=== PATIENT | male | born 1935 | race Caucasian/White ===

== ENCOUNTER 2018-09-13 07:17 | Day surgery (SDC) | payer MEDICARE, OTHER ==
[~2018-09-13 07:17] MED LIST: Lactated Ringers 1,000 ML IV SCH; Lidocaine 1%/Sod Bicarbonate in NS 8.4% 1 ML Syringe IDERM PRN; Sodium Chloride 0.9% 10 ML Syringe FLUSH PRN
--- NOTE | 2018-09-13 07:37 | PCM.PREANE ---
Preanesthetic Assessment - Anesthesia/Transfusion/Family Hx Anesthesia History: Prior Anesthesia Without Reaction Family History of Anesthesia Reaction: No Transfusion History: No Prior Transfusion(s) - Review of Systems General: No Symptoms Pulmonary: Shortness of Breath Cardiovascular: Dyspnea on Exertion Gastrointestinal: No Symptoms Neurological: Numbness (fingers and toes) Other: Reports: Diabetes - Physical Assessment NPO Status Date: 09/12/18 NPO Status Time: 00:00 Pulse: 62 O2 Sat by Pulse Oximetry: 93 Respiratory Rate: 16 Blood Pressure: 172/87 Temperature: 36.3 C Height: 1.75 m Weight: 92.624 kg ASA Class: 3 Mental Status: Alert & Oriented x3 Airway Class: Mallampati = 2 Dentition: Reports: Normal Dentition Thyro-Mental Finger Breadths: 2 Mouth Opening Finger Breadths: 2 ROM/Head Extension: Limited/Partial Lungs: Clear to Auscultation, Normal Respiratory Effort, Decreased Breath Sounds Cardiovascular: Regular Rate, Regular Rhythm - Allergies Allergies/Adverse Reactions: Allergies Allergy/AdvReac Type Severity Reaction Status Date / Time ciprofloxacin AdvReac Stomach Verified 09/12/18 13:05 Upset doxycycline AdvReac Stomach Verified 09/12/18 13:05 Upset - Blood Blood Available: No Product(s) Available: None - Anesthesia Plan Pre-Op Medication Ordered: Beta Saman Beta Saman: Bisoprolol Med Last Dose Date: 09/12/18 Med Last Dose Time: 21:00 - Acknowledgements Anesthesia Type Planned: MAC Pt an Appropriate Candidate for the Planned Anesthesia: Yes Alternatives and Risks of Anesthesia Discussed w Pt/Guardian: Yes Pt/Guardian Understands and Agrees with Anesthesia Plan: Yes PreAnesthesia Questionnaire HEENT History: Reports: Impaired Vision, Sinusitis, Other (See Below) Other HEENT History: impacted cerumen, blepharoplasty, cataract surgery, has hearing aids, glasses Cardiovascular History: Reports: Aneurysm, High Cholesterol, Hypertension, Other (See Below) Other Cardiovascular History: cough, dypsnea Respiratory History: Reports: Sleep Apnea, Other (See Below) Other Respiratory History: cough, dypsnea Gastrointestinal History: Reports: Diverticulosis, Other (See Below) Genitourinary History: Reports: Other (See Below) Other Genitourinary History: dysuria, nocturia [employer] History: Reports: None Musculoskeletal History: Reports: Other (See Below) Other Musculoskeletal History: restless leg syndrome, myalgia, myositis Neurological History: Reports: None Psychiatric History: Reports: None Endocrine/Metabolic History: Reports: Diabetes, Type II Hematologic History: Reports: None Immunologic History: Reports: None Oncologic (Cancer) History: Reports: None Dermatologic History: Reports: Other (See Below) Other Dermatologic History: rash, viral warts - Past Surgical History Head Surgeries/Procedures: Reports: None Cardiovascular Surgical History: Reports: AAA Repair Respiratory Surgical History: Reports: None GI Surgical History: Reports: Appendectomy, Cholecystectomy, Colon, Colonoscopy , EGD Female Surgical History: Reports: None Male Surgical History: Reports: None Endocrine Surgical History: Reports: None Neurological Surgical History: Reports: None Musculoskeletal Surgical History: Reports: None Oncologic Surgical History: Reports: None Dermatological Surgical History: Reports: None - SUBSTANCE USE Smoking Status *Q: Never Smoker Tobacco Use Within Last Twelve Months: No Second Hand Smoke Exposure: No Days Per Week of Alcohol Use: 1 Number of Drinks Per Day: 0 Total Drinks Per Week: 0 Recreational Drug Use History: No - HOME MEDS Home Medications: Home Meds Acetaminophen/Caffeine [Excedrin Tension Headache Cplt] 2 tab PO Q6H PRN [History] Bisoprolol/Hydrochlorothiazide [Bisoprolol/HCTZ 10-6.25 MG] 1 tab PO DAILY 09/12 [History] Finasteride 5 mg PO DAILY 09/12/18 [History] Fluticasone Propionate [Flonase] 1 dose NASBOTH DAILY 09/12/18 [History] Gabapentin [Neurontin] 300 mg PO BEDTIME 09/12/18 [History] Insulin Glargine,Hum.Rec.Anlog [Toujeo Solostar] 25 units SQ DAILY 09/12/18 [ History] Losartan Potassium 50 mg PO DAILY 09/12/18 [History] Omeprazole 20 mg PO DAILY 09/12/18 [History] Tamsulosin HCl 0.4 mg PO DAILY 09/12/18 [History] glipiZIDE [Glucotrol] 10 mg PO BID 09/12/18 [History] metFORMIN [Glucophage XR] 500 mg PO DAILY 09/12/18 [History] - CURRENT (IN HOUSE) MEDS Current Meds: Current Medications Lactated Ringer's (Ringers, Lactated) 1,000 mls @ 125 mls/hr IV ASDIRECTED BAO Stop: 09/13/18 23:00 Lidocaine/Sodium Bicarbonate (Buffered Lidocaine 1% In Ns 8.4%) 0.25 ml IDERM ONETIME PRN PRN Reason: Prior to IV Start Stop: 09/13/18 18:00 Sodium Chloride (Saline Flush) 10 ml FLUSH ASDIRECTED PRN PRN Reason: Keep Vein Open Stop: 09/13/18 18:00
[2018-09-13] MEDS ORDERED: Propofol 200 MG/20 ML SDV ONE ×2 (09:24→09:55)
--- NOTE | 2018-09-13 10:19 | PCM.OPNOTE ---
- General Post-Op/Procedure Note Date of Surgery/Procedure: 09/13/18 Operative Procedure(s): EGD Findings: 1. Gastritis 2. Hiatal hernia vs. long segment Mohr's Esophagus 3. 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 Antrum biopsy 2. Z-line biopsy 3. Mohr's biopsy, proximal Fluid Replacement, Intraop: 500 Output, Urine Amount: 0 EBL in mLs: 0 Complications: none apparent Condition: Good
--- NOTE | 2018-09-13 10:21 | PCM.PRNOTE ---
- Free Text/Narrative Note: Operative Report Date of procedure: September 13, 2018 Preoperative diagnosis: , Dysphagia, persistent cough when eating Postoperative diagnosis: . Same Surgeon: Teresa Castillo M.D. Procedure: EGD with Biopsy Anesthesia: MAC Anesthesiologist: Hang White CRNA IV fluids: 500 mL Estimated blood loss: 0 mL Findings: 1. Gastritis 2. Hiatal hernia vs. long segment Mohr's Esophagus 3. 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 Antrum biopsy 2. Z-line biopsy 3. Mohr's biopsy, proximal Indication: The patient is an 83 -year-old gentleman who presented with complaints of dysphagia as well as persistent coughing when eating. The patient reports he also sometimes starts sneezing while eating. He underwent a preoperative evaluation with swallow study to rule out aspiration. This was negative. He also underwent an x-ray esophagram one year ago that did not reveal any abnormal contraction or stricture in the esophagus. The patient was consented for an EGD with intervention. Risk of bleeding and perforation were discussed. The patient's consent was obtained Description of the procedure: The patient was taken to the endoscopy suite and placed on hemodynamic monitoring. The nurse transition of care specialist induced MAC anesthesia. A bite block was placed. The patient was positioned in the left lateral decubitus position. A timeout was performed. The endoscope was gently placed into the mouth to the back of the pharynx and introduced into the esophagus. The scope was gently advanced under direct visualization down to the level of the lower esophageal sphincter. The stomach was then entered. Normal rugal folds were noted. The scope was advanced into the antrum. We noted gastritis, marked by patchy erythema. Cold biopsy forceps were used to take mucosal samples for H. pylori in the antrum The pylorus was then entered and the first and second portion of the duodenum was inspected. We did not see any abnormality in the mucosa of the duodenum. There were no ulcerations in the duodenum. The scope was then retroflexed in the cardia and fundus were investigated. There were 3 areas of superficial erythema and mild erosion noted in the body of the stomach. The scope was then withdrawn into the esophagus to evaluate the GE junction. The GE junction was noted at 44 cm from the mouth. The Z line was noted at 34 cm from the mouth. The Z line was irregular with some tongues of mucosa extending upwards. It was unclear if the large extent of gastric mucosa was from long segment Mohr's esophagus versus a large hiatal hernia. Biopsies were taken of the proximal and of the mucosa at the Z line. These biopsies were taken with cold biopsy forceps in 4 quadrants and sent for pathology. The scope was further withdrawn to inspect the upper airway structures. 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 Photographs were taken. No mucosal abnormalities over this tumor. The procedure was terminated. the patient tolerated the procedure well without any evidence of complications. Instructions: The patient will follow up in clinic. His PPI dose was increased due to the gastritis findings. We will follow up the biopsies to evaluate Mohr's versus hiatal hernia. He will be referred for follow-up with ENT to evaluate the mass on the epiglottis. Teresa Castillo MD General Surgery
== END 2018-09-13 11:02 | disposition home or self-care (01) ==
LOC: JD.SDS 07:17
PROVIDERS: ATTEND Surgery
DX: K22.70 Barrett's esophagus without dysplasia (principal); K29.50 Unspecified chronic gastritis without bleeding; K22.8 Other specified diseases of esophagus; K21.9 Gastro-esophageal reflux disease without esophagitis; J39.2 Other diseases of pharynx; I10 Essential (primary) hypertension; E11.42 Type 2 diabetes mellitus with diabetic polyneuropathy; E78.2 Mixed hyperlipidemia; G47.33 Obstructive sleep apnea (adult) (pediatric); Z88.1 Allergy status to other antibiotic agents; Z79.51 Long term (current) use of inhaled steroids; Z79.4 Long term (current) use of insulin; Z79.899 Other long term (current) drug therapy
CPT/HCPCS: 43239; 82962; 88305; 88342; J2704; J7120; 00731

== ENCOUNTER 2019-05-09 11:08 | Emergency (ER) | payer MEDICARE, OTHER ==
[2019-05-09] MEDS ORDERED: Ondansetron 4 MG/2 ML SDV IVPUSH ONE (11:38)
--- NOTE | 2019-05-09 11:43 | EDM.PDOC ---
ED HPI GENERAL MEDICAL PROBLEM - General Chief Complaint: Abdominal Pain Stated Complaint: [facility] Time Seen by Provider: 05/09/19 11:30 Source of Information: Reports: Patient History Limitations: Reports: No Limitations - History of Present Illness INITIAL COMMENTS - FREE TEXT/NARRATIVE: 83-year-old male from [facility] attends the ED per ambulance. He states he hasn't been feeling well for 2 months. Early satiety losing weight probably 20 pounds in 2 months. Pain and pressure discomfort in his upper abdomen. Some positive constipation. Denies any chest pain cough or sputum production. No recent changes to any of his medications. He is a type II diabetic controlled with oral medications. Glipizide and metformin. Onset: Gradual, Other (Right proximal the last 2 months and progressively getting worse) Duration: Chronic, Getting Worse Location: Reports: Abdomen (Diffuse upper abdominal tenderness and discomfort. Early satiety . 20 pound weight loss over the last 2 months. Chronic constipation problems) Quality: Reports: Other Severity: Moderate (Overpressure fullness discomfort.) Improves with: Reports: None Worsens with: Reports: None Context: Reports: Other. Denies: Activity, Exercise, Lifting, Sick Contact, Trauma Associated Symptoms: Reports: Diaphoresis, Loss of Appetite, Malaise, Nausea/ Vomiting (Night sweats diaphoresis), Weakness. 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) (Only has prescribed medications) - Related Data Allergies Allergy/AdvReac Type Severity Reaction Status Date / Time ciprofloxacin AdvReac Stomach Verified 05/09/19 11:32 Upset doxycycline AdvReac Stomach Verified 05/09/19 11:32 Upset Home Meds: Home Meds Acetaminophen/Caffeine [Excedrin Tension Headache Cplt] 2 tab PO Q6H PRN [History] Bisoprolol/Hydrochlorothiazide [Bisoprolol/HCTZ 10-6.25 MG] 1 tab PO DAILY 09/12 [History] Finasteride 5 mg PO DAILY 09/12/18 [History] Fluticasone Propionate [Flonase] 1 dose NASBOTH DAILY 09/12/18 [History] Gabapentin [Neurontin] 300 mg PO BEDTIME 09/12/18 [History] Insulin Glargine,Hum.Rec.Anlog [Toujeo Solostar] 20 units SQ DAILY 09/12/18 [ History] Losartan Potassium 50 mg PO DAILY 09/12/18 [History] Tamsulosin HCl 0.4 mg PO DAILY 09/12/18 [History] glipiZIDE [Glucotrol] 10 mg PO BID 09/12/18 [History] metFORMIN [Glucophage XR] 500 mg PO DAILY 09/12/18 [History] Omeprazole 20 mg PO DAILY 30 Days #30 cap.cr 09/13/18 [Rx] Furosemide [Lasix] 40 mg PO DAILY #30 tablet 05/09/19 [Rx] Past Medical History HEENT History: Reports: Impaired Vision, Sinusitis, Other (See Below) Other HEENT History: impacted cerumen, blepharoplasty, cataract surgery, has hearing aids, glasses Cardiovascular History: Reports: Aneurysm, High Cholesterol, Hypertension, Other (See Below) Other Cardiovascular History: cough, dypsnea Respiratory History: Reports: Sleep Apnea, Other (See Below) Other Respiratory History: cough, dypsnea Gastrointestinal History: Reports: Diverticulosis, Other (See Below) Genitourinary History: Reports: Other (See Below) Other Genitourinary History: dysuria, nocturia [employer]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: None Musculoskeletal History: Reports: Other (See Below) Other Musculoskeletal History: restless leg syndrome, myalgia, myositis Neurological History: Reports: None Psychiatric History: Reports: None Endocrine/Metabolic History: Reports: Diabetes, Type II Hematologic History: Reports: None Immunologic History: Reports: None Oncologic (Cancer) History: Reports: None Dermatologic History: Reports: Other (See Below) Other Dermatologic History: rash, viral warts - Past Surgical History Cardiovascular Surgical History: Reports: AAA Repair GI Surgical History: Reports: Appendectomy, Cholecystectomy, Colon, Colonoscopy , EGD Male Surgical History: Reports: None Endocrine Surgical History: Reports: None Musculoskeletal Surgical History: Reports: None Oncologic Surgical History: Reports: None Dermatological Surgical History: Reports: None Social & Family History - Tobacco Use Smoking Status *Q: Never Smoker - Caffeine Use Caffeine Use: Reports: Coffee Caffeine Use Comment: occcasional - Recreational Drug Use Recreational Drug Use: No - Living Situation & Occupation Living situation: Reports: , with Spouse (They live in a home in [facility]) Occupation: Retired ED ROS GENERAL - Review of Systems Review Of Systems: See Below Constitutional: Reports: Malaise, Weakness, Fatigue, Decreased Appetite ( Reportedly 20 pound weight loss over 2 months), Weight Loss, Other (Early satiety). Denies: Fever, Chills HEENT: Reports: Glasses Respiratory: Reports: Shortness of Breath. Denies: Wheezing, Pleuritic Chest Pain, Cough, Sputum, Hemoptysis, Other Cardiovascular: Reports: Blood Pressure Problem, Dyspnea on Exertion. Denies: Chest Pain, Claudication, Edema, Lightheadedness, Orthopnea Endocrine: Reports: Fatigue GI/Abdominal: Reports: Abdominal Pain, Constipation (With early satiety), Decreased Appetite, Nausea. Denies: Difficulty Swallowing, Flatus, Hematemesis , Hematochezia, Melena, Mucous in Stool, Stool Incontinence, Vomiting : Reports: Frequency, Other (Nocturia usually twice nightly). 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 Burning in both lower extremities), Other Psychiatric: Reports: No Symptoms Hematologic/Lymphatic: Reports: No Symptoms Immunologic: Reports: No Symptoms ED EXAM, GI/ABD - Physical Exam Exam: See Below Exam Limited By: No Limitations General Appearance: Alert, WD/WN, No Apparent Distress, Other (Vital signs show temperature 37.4 pulse 78 sinus respiratory disease 18 BP mildly / 93. Sats are 91-92% on room air.) Eyes: Bilateral: Normal Appearance (No scleral icterus and no peripheral pallor. ) Throat/Mouth: Normal Lips, Normal Oropharynx, Other. No: Normal Teeth Head: Atraumatic, Normocephalic Neck: Normal Inspection, Supple, Non-Tender, Full Range of Motion, Limited Range of Motion. No: Carotid Bruit, Lymphadenopathy (L), Lymphadenopathy (R), Thyromegaly Respiratory/Chest: No Respiratory Distress, No Accessory Muscle Use, Rales ( Crackles both bases. They improve slightly with deep inspiration but he still has a few crackles. Likely atelectasis) Cardiovascular: Regular Rate, Rhythm, No Edema, No Gallop, No JVD, No Murmur, No Rub. No: Normal Peripheral Pulses GI/Abdominal Exam: Normal Bowel Sounds, Soft, Non-Tender, No Organomegaly, No Abnormal Bruit, No Mass, Other (He has had a midline laparotomy inferior to the umbilicus apparently for resection of portion of his colon secondary to diverticulitis 20 years ago. Primary reanastomosis) (Male) Exam: No Hernia Back Exam: Normal Inspection, Full Range of Motion. 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.) ST-T: Other (T-wave inversion V1 to V5.) QT: Prolonged (QTC is moderately prolonged.) EKG Interpretation Comments: Abnormal ECG Course - Vital Signs Last Recorded V/S: Last Vital Signs Temp 37.4 C 05/09/19 11:19 Pulse 78 05/09/19 11:19 Resp 18 05/09/19 11:19 BP 174/93 H 05/09/19 11:19 Pulse Ox 92 L 05/09/19 11:19 - Orders/Labs/Meds Orders: Active Orders 24 hr Category Date Time Status EKG Documentation Completion [RC] STAT Care 05/09/19 11:39 Active Influenza Vaccine Charge [RC] .DISCHARGE Care 05/09/19 11:43 Active Oxygen Therapy [RC] ASDIRECTED Care 05/09/19 11:39 Active Abdomen 1V Flat [CR] Stat Exams 05/09/19 11:40 Taken Chest 1V Frontal [CR] Stat Exams 05/09/19 11:39 Taken CULTURE BLOOD [BC] Stat Lab 05/09/19 12:05 Received CULTURE BLOOD [BC] Stat Lab 05/09/19 12:10 Received Sodium Chloride 0.9% [Normal Saline] 1,000 ml Med 05/09/19 11:45 Active IV ASDIRECTED Blood Culture x2 Reflex Set [OM.PC] Stat Oth 05/09/19 11:48 Ordered Medication Orders Sodium Chloride (Normal Saline) 1,000 mls @ 100 mls/hr IV ASDIRECTED BAO Last Admin: 05/09/19 11:44 Dose: 100 mls/hr Labs: Laboratory Tests 05/09/19 05/09/19 05/09/19 Range/Units 11:33 11:33 11:33 WBC 3.50 L (4.23-9.07) K/mm3 RBC 4.39 L (4.63-6.08) M/mm3 Hgb 12.4 L (13.7-17.5) gm/dl Hct 35.7 L (40.1-51.0) % MCV 81.3 (79.0-92.2) fl MCH 28.2 (25.7-32.2) pg MCHC 34.7 (32.2-35.5) g/dl RDW Std Deviation 37.1 (35.1-43.9) fL Plt Count 225 (163-337) K/mm3 MPV 9.2 L (9.4-12.3) fl Neut % (Auto) 42.3 (34.0-67.9) % Lymph % (Auto) 40.0 (21.8-53.1) % Coos % (Auto) 15.1 H (5.3-12.2) % Eos % (Auto) 2.0 (0.8-7.0) Baso % (Auto) 0.6 (0.1-1.2) % Neut # (Auto) 1.48 L (1.78-5.38) K/mm3 Lymph # (Auto) 1.40 (1.32-3.57) K/mm3 Co[place] # (Auto) 0.53 (0.30-0.82) K/mm3 Eos # (Auto) 0.07 (0.04-0.54) K/mm3 Baso # (Auto) 0.02 (0.01-0.08) K/mm3 Manual Slide Review Abnormal smear ESR (0-15) mm/hr PT 11.1 (9.7-12.0) SECONDS INR 1.02 APTT 30 (22-31) SECONDS Sodium 132 L (136-145) mEq/L Potassium 3.5 (3.5-5.1) mEq/L Chloride 97 L (98-107) mEq/L Carbon Dioxide 27 (21-32) mEq/L Anion Gap 11.5 (5-15) BUN 11 (7-18) mg/dL Creatinine 1.1 (0.7-1.3) mg/dL Est Cr Clr Drug Dosing 52.67 mL/min Estimated GFR (MDRD) > 60 (>60) mL/min BUN/Creatinine Ratio 10.0 L (14-18) Glucose 100 (83-115) mg/dL Hemoglobin A1c (4.50-6.20) % Lactic Acid (0.4-2.0) mmol/L Calcium 9.9 (8.5-10.1) mg/dL Magnesium 1.8 (1.8-2.4) mg/dl Total Bilirubin 0.5 (0.2-1.0) mg/dL AST 21 (15-37) U/L ALT 12 L (16-63) U/L Alkaline Phosphatase 41 L (46-116) U/L Troponin I < 0.017 (0.00-0.056) ng/mL C-Reactive Protein 0.3 (<1.0) mg/dL NT-Pro-B Natriuret Pep (0-450) pg/mL Total Protein 6.8 (6.4-8.2) g/dl Albumin 3.4 (3.4-5.0) g/dl Globulin 3.4 gm/dL Albumin/Globulin Ratio 1.0 (1-2) Lipase 86 (73-393) U/L TSH 3rd Generation 0.459 (0.358-3.74) uIU/mL Urine Color (Yellow) Urine Appearance (Clear) Urine pH (5.0-8.0) Ur Specific [place] (1.005-1.030) Urine Protein (Negative) Urine Glucose (UA) (Negative) Urine Ketones (Negative) Urine Occult Blood (Negative) Urine Nitrite (Negative) Urine Bilirubin (Negative) Urine Urobilinogen (0.2-1.0) Ur Leukocyte Esterase (Negative) Urine RBC (0-5) /hpf Urine WBC (0-5) /hpf Ur Epithelial Cells (0-5) /hpf Urine Bacteria (FEW) /hpf Hyaline Casts (0-5) /lpf Urine Mucus (FEW) /hpf 05/09/19 05/09/19 05/09/19 Range/Units 11:33 11:33 11:33 WBC (4.23-9.07) K/mm3 RBC (4.63-6.08) M/mm3 Hgb (13.7-17.5) gm/dl Hct (40.1-51.0) % MCV (79.0-92.2) fl MCH (25.7-32.2) pg MCHC (32.2-35.5) g/dl RDW Std Deviation (35.1-43.9) fL Plt Count (163-337) K/mm3 MPV (9.4-12.3) fl Neut % (Auto) (34.0-67.9) % Lymph % (Auto) (21.8-53.1) % Coos % (Auto) (5.3-12.2) % Eos % (Auto) (0.8-7.0) Baso % (Auto) (0.1-1.2) % Neut # (Auto) (1.78-5.38) K/mm3 Lymph # (Auto) (1.32-3.57) K/mm3 [place] # (Auto) (0.30-0.82) K/mm3 Eos # (Auto) (0.04-0.54) K/mm3 Baso # (Auto) (0.01-0.08) K/mm3 Manual Slide Review ESR 20 H (0-15) mm/hr PT (9.7-12.0) SECONDS INR APTT (22-31) SECONDS Sodium (136-145) mEq/L Potassium (3.5-5.1) mEq/L Chloride (98-107) mEq/L Carbon Dioxide (21-32) mEq/L Anion Gap (5-15) BUN (7-18) mg/dL Creatinine (0.7-1.3) mg/dL Est Cr Clr Drug Dosing mL/min Estimated GFR (MDRD) (>60) mL/min BUN/Creatinine Ratio (14-18) Glucose (83-115) mg/dL Hemoglobin A1c 6.70 H (4.50-6.20) % Lactic Acid (0.4-2.0) mmol/L Calcium (8.5-10.1) mg/dL Magnesium (1.8-2.4) mg/dl Total Bilirubin (0.2-1.0) mg/dL AST (15-37) U/L ALT (16-63) U/L Alkaline Phosphatase (46-116) U/L Troponin I (0.00-0.056) ng/mL C-Reactive Protein (<1.0) mg/dL NT-Pro-B Natriuret Pep 924 H (0-450) pg/mL Total Protein (6.4-8.2) g/dl Albumin (3.4-5.0) g/dl Globulin gm/dL Albumin/Globulin Ratio (1-2) Lipase (73-393) U/L TSH 3rd Generation (0.358-3.74) uIU/mL Urine Color (Yellow) Urine Appearance (Clear) Urine pH (5.0-8.0) Ur Specific [place] (1.005-1.030) Urine Protein (Negative) Urine Glucose (UA) (Negative) Urine Ketones (Negative) Urine Occult Blood (Negative) Urine Nitrite (Negative) Urine Bilirubin (Negative) Urine Urobilinogen (0.2-1.0) Ur Leukocyte Esterase (Negative) Urine RBC (0-5) /hpf Urine WBC (0-5) /hpf Ur Epithelial Cells (0-5) /hpf Urine Bacteria (FEW) /hpf Hyaline Casts (0-5) /lpf Urine Mucus (FEW) /hpf 05/09/19 05/09/19 Range/Units 12:05 12:50 WBC (4.23-9.07) K/mm3 RBC (4.63-6.08) M/mm3 Hgb (13.7-17.5) gm/dl Hct (40.1-51.0) % MCV (79.0-92.2) fl MCH (25.7-32.2) pg MCHC (32.2-35.5) g/dl RDW Std Deviation (35.1-43.9) fL Plt Count (163-337) K/mm3 MPV (9.4-12.3) fl Neut % (Auto) (34.0-67.9) % Lymph % (Auto) (21.8-53.1) % [place] % (Auto) (5.3-12.2) % Eos % (Auto) (0.8-7.0) Baso % (Auto) (0.1-1.2) % Neut # (Auto) (1.78-5.38) K/mm3 Lymph # (Auto) (1.32-3.57) K/mm3 [place] # (Auto) (0.30-0.82) K/mm3 Eos # (Auto) (0.04-0.54) K/mm3 Baso # (Auto) (0.01-0.08) K/mm3 Manual Slide Review ESR (0-15) mm/hr PT (9.7-12.0) SECONDS INR APTT (22-31) SECONDS Sodium (136-145) mEq/L Potassium (3.5-5.1) mEq/L Chloride (98-107) mEq/L Carbon Dioxide (21-32) mEq/L Anion Gap (5-15) BUN (7-18) mg/dL Creatinine (0.7-1.3) mg/dL Est Cr Clr Drug Dosing mL/min Estimated GFR (MDRD) (>60) mL/min BUN/Creatinine Ratio (14-18) Glucose (83-115) mg/dL Hemoglobin A1c (4.50-6.20) % Lactic Acid < 0.3 L (0.4-2.0) mmol/L Calcium (8.5-10.1) mg/dL Magnesium (1.8-2.4) mg/dl Total Bilirubin (0.2-1.0) mg/dL AST (15-37) U/L ALT (16-63) U/L Alkaline Phosphatase (46-116) U/L Troponin I (0.00-0.056) ng/mL C-Reactive Protein (<1.0) mg/dL NT-Pro-B Natriuret Pep (0-450) pg/mL Total Protein (6.4-8.2) g/dl Albumin (3.4-5.0) g/dl Globulin gm/dL Albumin/Globulin Ratio (1-2) Lipase (73-393) U/L TSH 3rd Generation (0.358-3.74) uIU/mL Urine Color Yellow (Yellow) Urine Appearance Clear (Clear) Urine pH 7.0 (5.0-8.0) Ur Specific [place] 1.020 (1.005-1.030) Urine Protein Negative (Negative) Urine Glucose (UA) Negative (Negative) Urine Ketones Negative (Negative) Urine Occult Blood Negative (Negative) Urine Nitrite Negative (Negative) Urine Bilirubin Negative (Negative) Urine Urobilinogen 0.2 (0.2-1.0) Ur Leukocyte Esterase Negative (Negative) Urine RBC Not seen (0-5) /hpf Urine WBC Not seen (0-5) /hpf Ur Epithelial Cells Not seen (0-5) /hpf Urine Bacteria Few (FEW) /hpf Hyaline Casts 0-5 (0-5) /lpf Urine Mucus Few (FEW) /hpf Meds: Medications Generic Name Dose Route Start Last Admin Trade Name Freq PRN Reason Stop Dose Admin Sodium Chloride 1,000 mls @ 100 mls/hr 05/09/19 11:45 05/09/19 11:44 Normal Saline IV 100 mls/hr ASDIRECTED BAO Administration Discontinued Medications Generic Name Dose Route Start Last Admin Trade Name Freq PRN Reason Stop Dose Admin Diatrizoate Meglum/Diatrizoate Sod 90 ml 05/09/19 12:33 05/09/19 13:37 Gastrografin 37% PO 05/09/19 12:34 90 ml ONETIME ONE Administration Furosemide 40 mg 05/09/19 14:13 05/09/19 14:35 Lasix IVPUSH 05/09/19 14:14 40 mg NOW ONE Administration Influenza Virus Vaccine 180 mcg 05/09/19 12:00 05/09/19 12:02 Fluzone High-Dose 2019-20 Syringe IM 05/09/19 12:01 180 mcg .ONCE ONE Administration Iopamidol 100 ml 05/09/19 12:33 05/09/19 13:37 Isovue-300 (61%) IVPUSH 05/09/19 12:34 100 ml ONETIME ONE Administration Ondansetron HCl 4 mg 05/09/19 11:38 05/09/19 11:44 Zofran IVPUSH 05/09/19 11:39 4 mg ONETIME ONE Administration Sodium Chloride 10 ml 05/09/19 12:33 05/09/19 13:37 Saline Flush FLUSH 05/09/19 12:34 10 ml ONETIME ONE Administration - Radiology Interpretation Free Text/Narrative:: 83-year-old male presents to the ED with a two-month history of not feeling well particularly early satiety analysis developed a 20 pound weight loss reportedly over the last 2 months. Associated intermittent positive constipation she can't eat. Denies any genitourinary complaints. His temperature today is 37.4 although he does not feel warm to palpation. Ears nose and throat show no active infection. A few rhonchi or crackles are present in both posterior lung bases. Heart was sinus with no murmurs noted. No clinical evidence of heart failure. Benign abdominal examination on palpation with no palpable masses. Abdomen aorta perhaps is slightly prominent. No inguinal adenopathy or hernias. No dependent edema. Pulses are decreased in both feet compatible with mild peripheral vascular disease. He's never been a smoker. Concern with weight loss and persistent upper abdominal pain and early satiety of that of a gastric problem versus pancreatic problem. Labs will be collected including a sedimentation rate and CRP. One view of the abdominal pain is obtained. The skin is okay with he will likely require CT the abdomen and pelvis with IV and oral contrast. Of note he is a type II diabetic controlled with metformin and glipizide. - Re-Assessments/Exams Free Text/Narrative Re-Assessment/Exam: 05/09/19 12:26 x-ray of the abdomen reveals gas pattern scattered throughout the upper abdomen. Appears to be a fluid collection in the left mid upper quadrant. No bowel obstruction. Chest x-ray reveals poorly visualized lung tena. Moderate cardiomegaly with the left heart border abutting the left costal margin. Obvious pleural effusions or pneumothorax no pneumonia identified 05/09/19 13:15 White count is 3.50 differential reveals 42% neutrophils and 40% lymphocytes and 15.1 monocytes which is elevated. Hemoglobin is 12.4 hematocrit of 35.7. Platelet count 225,000. Sedimentation rate is 20. PT is 11.1 with an INR of 1.02. PTT is 30. Sodium is slightly low at 132. Potassium low-normal at 3.5. Chloride is 97 with a bicarbonate of 27. Anion gap is 11.5 B1 is 11 with a creatinine of 1.1. GFR is greater than 60. Glucose 100 hemoglobin A1c is 6.70 indicating his type 2 diabetes is well-controlled. Lactic acid is pending. Calcium is 9.9 with a magnesium of 1.8. Liver function normal troponin I is less than 0.017. C-reactive protein less than 0.3 BNP is elevated at 924 total protein is 6.8 albumin fraction 3.4 globulin 3.4 lipase 86 TSH is 0.459 normal should be okay to have IV contrast with his CT of the abdomen and pelvis. His metformin will have to be placed on hold for the next 3 days. Serum lipase came back at 86. We'll therefore wait for results of CT abdomen and pelvis. 05/09/19 14:14 given Lasix 40 mg IV due to elevated BNP at 974+ the fluency is received in the ED. 05/09/19 15:30 decision made to discontinue the patient's glipizide. He reports he is no longer on metformin. Therefore the only thing he is using estrogen to 20 units once weekly for blood sugar control and we will leave this in place. Since he's lost 20 pounds of weight he may be exposing hypoglycemic events causing him to feel so unwell. I can't explain otherwise his tremendous loss of appetite. I could find no lesions in his stomach or pancreas the CT of the abdomen appeared to be pretty normal. I've advised that if his symptoms don't improve over the next week and then he should be seen by Dr. Dan his primary care physician. Perhaps EGD is indicated. I'm going to place him on Lasix 40 mg once daily every morning due to evidence of congestive heart failure. He will follow-up in week's time for serum potassium level check. 05/09/19 15:36 after speaking with the family they are concerned the patient may be suffering from depression and they believe that this may be contributing to his decreased appetite as they are seeing other signs and symptoms of depression in the home. They will discuss this with Dr. Dan upon next visit. Departure - Departure Time of Disposition: 15:31 Disposition: Home, Self-Care 01 Condition: Fair Clinical Impression: Loss of appetite Congestive heart failure Qualifiers: Heart failure type: unspecified Heart failure chronicity: chronic Qualified Code(s): I50.9 - Heart failure, unspecified - Discharge Information *PRESCRIPTION DRUG MONITORING PROGRAM REVIEWED*: Not Applicable *COPY OF PRESCRIPTION DRUG MONITORING REPORT IN PATIENT IGNACIO: Not Applicable Prescriptions: Furosemide [Lasix] 40 mg PO DAILY #30 tablet Instructions: Heart Failure Exacerbation Referrals: Braxton Villarreal MD [Primary Care Provider] - Forms: ED Department Discharge Additional Instructions: Evaluation the emergent today in regards to decreased appetite with a reported 20 pound weight loss over the last 2 months septated a and aggressive investigation. Lab tests revealed that you do have mild congestive heart failure with an elevated BNP at 934. Is in for a period of time it's impossible to tell and he may be causing her to be short of breath on minimal exertion and fatigue. Contributing to some degree of loss of appetite. Your hemoglobin A1c today was down to 6.3. Suggest that you are perhaps too much medication to control your blood sugars at this time is to continue making you feel unwell. This may occurred since she lost 20 pounds of weight over the last 2 months. Suggest discontinue glipizide tablets 10 mg twice daily at least for the next week to 10 days and checking your blood sugars. At this time still stay on the Toujeo 20 units injectable subcutaneous daily until follow-up with Dr. Dan in about a week's time. I've added Lasix 40 mg once daily every morning to treatment plan to help decrease the amount of fluid retention from mild heart failure. Suggest checking weights daily every morning and evaluated with Dr. Dan in about a week's time. - My Orders Last 24 Hours: My Active Orders 05/09/19 11:39 EKG Documentation Completion [RC] STAT Oxygen Therapy [RC] ASDIRECTED Chest 1V Frontal [CR] Stat 05/09/19 11:40 Abdomen 1V Flat [CR] Stat 05/09/19 11:43 Influenza Vaccine Charge [RC] .DISCHARGE 05/09/19 11:45 Sodium Chloride 0.9% [Normal Saline] 1,000 ml IV ASDIRECTED 05/09/19 11:48 Blood Culture x2 Reflex Set [OM.PC] Stat 05/09/19 12:05 CULTURE BLOOD [BC] Stat 05/09/19 12:10 CULTURE BLOOD [BC] Stat - Assessment/Plan Last 24 Hours: My Active Orders 05/09/19 11:39 EKG Documentation Completion [RC] STAT Oxygen Therapy [RC] ASDIRECTED Chest 1V Frontal [CR] Stat 05/09/19 11:40 Abdomen 1V Flat [CR] Stat 05/09/19 11:43 Influenza Vaccine Charge [RC] .DISCHARGE 05/09/19 11:45 Sodium Chloride 0.9% [Normal Saline] 1,000 ml IV ASDIRECTED 05/09/19 11:48 Blood Culture x2 Reflex Set [OM.PC] Stat 05/09/19 12:05 CULTURE BLOOD [BC] Stat 05/09/19 12:10 CULTURE BLOOD [BC] Stat
[2019-05-09] MEDS ORDERED: Sodium Chloride 0.9% 1,000 ML IV SCH (11:45)
[2019-05-09 12:18] LABS: HEMOGLOBIN A1C 6.7 % (4.50-6.20)
[2019-05-09] MEDS ORDERED: Sodium Chloride 0.9% 10 ML Syringe FLUSH ONE (12:33)
[2019-05-09] MEDS ORDERED: Diatrizoate Meglumine/Diatrizoate Sodium 37% 120 ML Bottle PO ONE (12:33)
[2019-05-09] MEDS ORDERED: Iopamidol 612 MG/ML 100 ML Bottle IVPUSH ONE (12:33)
[2019-05-09] MEDS ORDERED: Furosemide 40 MG/4 ML VIAL IVPUSH ONE (14:13)
--- NOTE | 2019-05-09 14:17 | CT ---
CT abdomen and pelvis Technique: Multiple axial sections were obtained from above the dome of the diaphragm inferiorly through the pubic symphysis. Intravenous and oral contrast was utilized. Delayed images were also obtained through the abdomen and pelvis. Comparison: Previous CT abdomen and pelvis exams of 08/11/10. Findings: Slight atelectasis noted within both lung bases. Minimal intrahepatic biliary duct dilatation is seen most likely residual from prior cholecystectomy. No focal abnormality is appreciated within the liver. Spleen appears within normal limits. Adrenal glands show no nodule. Pancreas is within normal limits. Kidneys show small scattered cortical cysts. No hydronephrosis or discrete solid mass is seen. 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 No retroperitoneal adenopathy or mesenteric abnormalities are seen. Appendix is not visualized with certainty. No pelvic mass or adenopathy is seen. Delayed images shows contrast within the ureters and within the bladder. Bone window settings were reviewed which shows slight degenerative change scattered within the spine. Impression: 1. Findings as noted above. 2. Nothing acute is seen on CT study of the abdomen and pelvis. Diagnostic code #2 This report was dictated in [place] Standard Time
--- NOTE | 2019-05-12 09:13 | CR ---
Chest: AP view of the chest was obtained. Comparison: Prior chest x-ray of 11/08/18. Heart size is normal. Tortuous thoracic aorta is seen. Lungs are clear with no acute parenchymal change is seen. Bony structures are grossly intact. Impression: 1. Nothing acute is seen on AP chest x-ray. Diagnostic code #1 This report was dictated in [place] Standard Time
--- NOTE | 2019-05-12 09:13 | CR ---
Abdomen: Supine view of the abdomen was obtained. Comparison: No prior abdominal x-ray. Surgical clips are seen from prior cholecystectomy. Aortoiliac stent is present. Mild vascular calcification is seen. Bowel gas pattern is normal. No soft tissue abnormality is seen. Bony structures show scattered endplate spurring within the spine. Impression: 1. Findings which are felt to be incidental. 2. Nothing acute is appreciated on supine abdominal study. Diagnostic code #2 This report was dictated in [place] Standard Time
== END 2019-05-09 16:00 | disposition home or self-care (01) ==
LOC: JD.ED 11:08
DX: R63.0 Anorexia (principal); I11.0 Hypertensive heart disease with heart failure; I50.9 Heart failure, unspecified; E11.42 Type 2 diabetes mellitus with diabetic polyneuropathy; Z68.27 Body mass index [BMI] 27.0-27.9, adult; Z79.84 Long term (current) use of oral hypoglycemic drugs; Z88.1 Allergy status to other antibiotic agents; Z79.4 Long term (current) use of insulin; Z23 Encounter for immunization
CPT/HCPCS: 36415; 71045; 74018; 74177; 80053; 81001; 83036; 83605; 83690; 83735; 83880; 84443; 84484; 85025; 85610; 85652; 85730; 86140; 87040; 90662; 93005; 96361; 96374; 96375; 99285; G0008; J1940; J2405; J7040; Q9963; Q9967; 93010; 94762; 99284; J7030

== ENCOUNTER 2020-01-26 14:00 | Emergency (ER) | payer MEDICARE, OTHER ==
[2020-01-26] MEDS ORDERED: Sodium Chloride 0.9% 10 ML Syringe FLUSH PRN (14:46)
[2020-01-26] MEDS ORDERED: Acetaminophen 325 MG Tab PO ONE (14:47)
--- NOTE | 2020-01-26 16:01 | EDM.PDOC ---
ED HPI GENERAL MEDICAL PROBLEM - General Chief Complaint: Fever Stated Complaint: FEVER/CONFUSED Time Seen by Provider: 01/26/20 14:25 Source of Information: Reports: Patient, Family History Limitations: Reports: No Limitations - History of Present Illness INITIAL COMMENTS - FREE TEXT/NARRATIVE: The patient was brought by his daughter for fever and confusion. This started last night. He has a slight cough. He has a temp of 101 when he arrived here. He has no headache, chest pain, shortness of breath, abdominal pain, nausea, vomiting, diarrhea or dysuria. Onset: Gradual Duration: Day(s): (last night) Severity: Moderate Improves with: Reports: None Worsens with: Reports: None Associated Symptoms: Reports: Cough, Fever/Chills. Denies: Chest Pain, Headaches, Nausea/Vomiting, Shortness of Breath - Related Data Allergies Allergy/AdvReac Type Severity Reaction Status Date / Time ciprofloxacin AdvReac Stomach Verified 05/09/19 11:32 Upset doxycycline AdvReac Stomach Verified 05/09/19 11:32 Upset Home Meds: Home Meds Finasteride 5 mg PO DAILY 01/26/20 [History] Tamsulosin [Flomax] 0.4 mg PO DAILY 01/26/20 [History] atorvaSTATin Calcium [Atorvastatin Calcium] 20 mg PO DAILY 01/26/20 [History] glipiZIDE [Glucotrol] 5 mg PO DAILY 01/26/20 [History] Past Medical History HEENT History: Reports: Impaired Vision, Sinusitis, Other (See Below) Other HEENT History: impacted cerumen, blepharoplasty, cataract surgery, has hearing aids, glasses Cardiovascular History: Reports: Aneurysm, High Cholesterol, Hypertension, Other (See Below) Other Cardiovascular History: cough, dypsnea Respiratory History: Reports: Sleep Apnea, Other (See Below) Other Respiratory History: cough, dypsnea Gastrointestinal History: Reports: Diverticulosis, Other (See Below) Genitourinary History: Reports: Other (See Below) Other Genitourinary History: dysuria, nocturia [employer] ON[employer] History: Reports: None Musculoskeletal History: Reports: Other (See Below) Other Musculoskeletal History: restless leg syndrome, myalgia, myositis Neurological History: Reports: None Psychiatric History: Reports: None Endocrine/Metabolic History: Reports: Diabetes, Type II Hematologic History: Reports: None Immunologic History: Reports: None Oncologic (Cancer) History: Reports: None Dermatologic History: Reports: Other (See Below) Other Dermatologic History: rash, viral warts - Past Surgical History Head Surgeries/Procedures: Reports: None Cardiovascular Surgical History: Reports: AAA Repair GI Surgical History: Reports: Appendectomy, Cholecystectomy, Colon, Colonoscopy, EGD Male Surgical History: Reports: None Endocrine Surgical History: Reports: None Musculoskeletal Surgical History: Reports: None Oncologic Surgical History: Reports: None Dermatological Surgical History: Reports: None Social & Family History - Family History Family Medical History: Noncontributory - Tobacco Use Smoking Status *Q: Never Smoker - Caffeine Use Caffeine Use: Reports: Coffee Caffeine Use Comment: occcasional - Living Situation & Occupation Living situation: Reports: , with Spouse (They live in a home in [facility]) Occupation: Retired ED ROS GENERAL - Review of Systems Review Of Systems: See Below Constitutional: Reports: Fever HEENT: Reports: No Symptoms Respiratory: Reports: Cough. Denies: Shortness of Breath Cardiovascular: Reports: No Symptoms Endocrine: Reports: No Symptoms GI/Abdominal: Reports: No Symptoms : Reports: No Symptoms Musculoskeletal: Reports: No Symptoms ED EXAM, SEPSIS - Physical Exam Exam: See Below Exam Limited By: No Limitations General Appearance: Alert, No Apparent Distress Ears: Normal External Exam Nose: Normal Inspection Head: Atraumatic, Normocephalic Neck: Normal Inspection Respiratory/Chest: No Respiratory Distress, Lungs Clear, Normal Breath Sounds Cardiovascular: Regular Rate, Rhythm, No Edema, No Murmur GI/Abdominal Exam: Soft, Non-Tender, No Organomegaly, No Mass Back: Normal Inspection Extremities: Normal Inspection Course - Vital Signs Last Recorded V/S: Last Vital Signs Temp 101 F H 01/26/20 14:18 Pulse 90 01/26/20 14:18 Resp 16 01/26/20 14:18 BP 170/95 H 01/26/20 14:32 Pulse Ox 97 01/26/20 14:18 - Orders/Labs/Meds Orders: Active Orders 24 hr Category Date Time Status CULTURE BLOOD [BC] Stat Lab 01/26/20 15:13 Received CULTURE BLOOD [BC] Stat Lab 01/26/20 15:17 Received FERRITIN [CHEM] Stat Lab 01/26/20 15:13 Received LACTATE DEHYDROGENASE,LDH [CHEM] Stat Lab 01/26/20 15:13 Received Sodium Chloride 0.9% [Saline Flush] Med 01/26/20 14:46 Active 10 ml FLUSH ASDIRECTED PRN Blood Culture x2 Reflex Set [OM.PC] Stat Ot 01/26/20 14:46 Ordered Saline Lock Insert [OM.PC] Stat Ot 01/26/20 14:46 Ordered Medication Orders Sodium Chloride (Saline Flush) 10 ml FLUSH ASDIRECTED PRN PRN Reason: Keep Vein Open Last Admin: 01/26/20 15:18 Dose: 10 ml Documented by: [place] Labs: Laboratory Tests 01/26/20 01/26/20 01/26/20 Range/Units 15:13 15:13 15:13 WBC 2.14 L* (4.23-9.07) K/mm3 RBC 4.13 L (4.63-6.08) M/mm3 Hgb 11.6 L (13.7-17.5) gm/dl Hct 34.6 L (40.1-51.0) % MCV 83.8 (79.0-92.2) fl MCH 28.1 (25.7-32.2) pg MCHC 33.5 (32.2-35.5) g/dl RDW Std Deviation 40.5 (35.1-43.9) fL Plt Count 174 (163-337) K/mm3 MPV 9.6 (9.4-12.3) fl Neutrophils % (Manual) 52 (40-60) % Band Neutrophils % 0 (0-10) % Lymphocytes % (Manual) 43 H (20-40) % Atypical Lymphs % 0 % Monocytes % (Manual) 3 (2-10) % Eosinophils % (Manual) 1 (0.8-7.0) % Basophils % (Manual) 1 (0.2-1.2) Platelet Estimate Adequate RBC Morph Comment Normal PT 10.3 (9.7-12.0) SECONDS INR 0.96 D-Dimer, Quantitative (0.19-0.50) mg/L Sodium 134 L (136-145) mEq/L Potassium 4.2 (3.5-5.1) mEq/L Chloride 101 (98-107) mEq/L Carbon Dioxide 21 (21-32) mEq/L Anion Gap 16.2 H (5-15) BUN 20 H (7-18) mg/dL Creatinine 1.4 H (0.7-1.3) mg/dL Est Cr Clr Drug Dosing 38.03 mL/min Estimated GFR (MDRD) 49 (>60) mL/min BUN/Creatinine Ratio 14.3 (14-18) Glucose 83 (83-115) mg/dL Lactic Acid (0.4-2.0) mmol/L Calcium 8.7 (8.5-10.1) mg/dL Total Bilirubin 0.3 (0.2-1.0) mg/dL AST 45 H (15-37) U/L ALT 49 (16-63) U/L Alkaline Phosphatase 41 L (46-116) U/L C-Reactive Protein 1.5 H* (<1.0) mg/dL Total Protein 8.1 (6.4-8.2) g/dl Albumin 3.8 (3.4-5.0) g/dl Globulin 4.3 gm/dL Albumin/Globulin Ratio 0.9 L (1-2) Urine Color (Yellow) Urine Appearance (Clear) Urine pH (5.0-8.0) Ur Specific [place] (1.005-1.030) Urine Protein (Negative) Urine Glucose (UA) (Negative) Urine Ketones (Negative) Urine Occult Blood (Negative) Urine Nitrite (Negative) Urine Bilirubin (Negative) Urine Urobilinogen (0.2-1.0) Ur Leukocyte Esterase (Negative) Urine RBC (0-5) /hpf Urine WBC (0-5) /hpf Ur Squamous Epith Cells (0-5) /hpf Urine Bacteria (FEW) /hpf Urine Mucus (FEW) /hpf SARS Virus RNA (PCR) (NEGATIVE) 01/26/20 01/26/20 01/26/20 Range/Units 15:13 15:13 15:13 WBC (4.23-9.07) K/mm3 RBC (4.63-6.08) M/mm3 Hgb (13.7-17.5) gm/dl Hct (40.1-51.0) % MCV (79.0-92.2) fl MCH (25.7-32.2) pg MCHC (32.2-35.5) g/dl RDW Std Deviation (35.1-43.9) fL Plt Count (163-337) K/mm3 MPV (9.4-12.3) fl Neutrophils % (Manual) (40-60) % Band Neutrophils % (0-10) % Lymphocytes % (Manual) (20-40) % Atypical Lymphs % % Monocytes % (Manual) (2-10) % Eosinophils % (Manual) (0.8-7.0) % Basophils % (Manual) (0.2-1.2) Platelet Estimate RBC Morph Comment PT (9.7-12.0) SECONDS INR D-Dimer, Quantitative 2.93 H (0.19-0.50) mg/L Sodium (136-145) mEq/L Potassium (3.5-5.1) mEq/L Chloride (98-107) mEq/L Carbon Dioxide (21-32) mEq/L Anion Gap (5-15) BUN (7-18) mg/dL Creatinine (0.7-1.3) mg/dL Est Cr Clr Drug Dosing mL/min Estimated GFR (MDRD) (>60) mL/min BUN/Creatinine Ratio (14-18) Glucose (83-115) mg/dL Lactic Acid 1.4 (0.4-2.0) mmol/L Calcium (8.5-10.1) mg/dL Total Bilirubin (0.2-1.0) mg/dL AST (15-37) U/L ALT (16-63) U/L Alkaline Phosphatase (46-116) U/L C-Reactive Protein (<1.0) mg/dL Total Protein (6.4-8.2) g/dl Albumin (3.4-5.0) g/dl Globulin gm/dL Albumin/Globulin Ratio (1-2) Urine Color (Yellow) Urine Appearance (Clear) Urine pH (5.0-8.0) Ur Specific [place] (1.005-1.030) Urine Protein (Negative) Urine Glucose (UA) (Negative) Urine Ketones (Negative) Urine Occult Blood (Negative) Urine Nitrite (Negative) Urine Bilirubin (Negative) Urine Urobilinogen (0.2-1.0) Ur Leukocyte Esterase (Negative) Urine RBC (0-5) /hpf Urine WBC (0-5) /hpf Ur Squamous Epith Cells (0-5) /hpf Urine Bacteria (FEW) /hpf Urine Mucus (FEW) /hpf SARS Virus RNA (PCR) Positive H (NEGATIVE) 01/26/20 Range/Units 15:24 WBC (4.23-9.07) K/mm3 RBC (4.63-6.08) M/mm3 Hgb (13.7-17.5) gm/dl Hct (40.1-51.0) % MCV (79.0-92.2) fl MCH (25.7-32.2) pg MCHC (32.2-35.5) g/dl RDW Std Deviation (35.1-43.9) fL Plt Count (163-337) K/mm3 MPV (9.4-12.3) fl Neutrophils % (Manual) (40-60) % Band Neutrophils % (0-10) % Lymphocytes % (Manual) (20-40) % Atypical Lymphs % % Monocytes % (Manual) (2-10) % Eosinophils % (Manual) (0.8-7.0) % Basophils % (Manual) (0.2-1.2) Platelet Estimate RBC Morph Comment PT (9.7-12.0) SECONDS INR D-Dimer, Quantitative (0.19-0.50) mg/L Sodium (136-145) mEq/L Potassium (3.5-5.1) mEq/L Chloride (98-107) mEq/L Carbon Dioxide (21-32) mEq/L Anion Gap (5-15) BUN (7-18) mg/dL Creatinine (0.7-1.3) mg/dL Est Cr Clr Drug Dosing mL/min Estimated GFR (MDRD) (>60) mL/min BUN/Creatinine Ratio (14-18) Glucose (83-115) mg/dL Lactic Acid (0.4-2.0) mmol/L Calcium (8.5-10.1) mg/dL Total Bilirubin (0.2-1.0) mg/dL AST (15-37) U/L ALT (16-63) U/L Alkaline Phosphatase (46-116) U/L C-Reactive Protein (<1.0) mg/dL Total Protein (6.4-8.2) g/dl Albumin (3.4-5.0) g/dl Globulin gm/dL Albumin/Globulin Ratio (1-2) Urine Color Yellow (Yellow) Urine Appearance Clear (Clear) Urine pH 5.5 (5.0-8.0) Ur Specific [place] 1.025 (1.005-1.030) Urine Protein 1+ H (Negative) Urine Glucose (UA) Negative (Negative) Urine Ketones Negative (Negative) Urine Occult Blood Negative (Negative) Urine Nitrite Negative (Negative) Urine Bilirubin Negative (Negative) Urine Urobilinogen 0.2 (0.2-1.0) Ur Leukocyte Esterase Negative (Negative) Urine RBC Not seen (0-5) /hpf Urine WBC 0-5 (0-5) /hpf Ur Squamous Epith Cells 0-5 (0-5) /hpf Urine Bacteria Few (FEW) /hpf Urine Mucus Not seen (FEW) /hpf SARS Virus RNA (PCR) (NEGATIVE) Meds: Medications Generic Name Dose Route Start Last Admin Trade Name Freq PRN Reason Stop Dose Admin Sodium Chloride 10 ml 01/26/20 14:46 01/26/20 15:18 Saline Flush FLUSH 10 ml ASDIRECTED PRN Administration Keep Vein Open Discontinued Medications Generic Name Dose Route Start Last Admin Trade Name Freq PRN Reason Stop Dose Admin Acetaminophen 650 mg 01/26/20 14:47 01/26/20 15:19 Tylenol PO 01/26/20 14:48 650 mg NOW ONE Administration Dexamethasone 6 mg 01/26/20 16:41 01/26/20 16:55 Dexamethasone IVPUSH 01/26/20 16:42 6 mg ONETIME ONE Administration Lorazepam 0.5 mg 01/26/20 16:14 01/26/20 16:19 Ativan IVPUSH 01/26/20 16:15 0.5 mg ONETIME ONE Administration - Re-Assessments/Exams Free Text/Narrative Re-Assessment/Exam: 01/26/20 15:59 I ordered an IV saline lock, CXR, labs, blood cultures and lactic acid. I also ordered tylenol. His CXR looks good. His WBC was low at 2.14. His Hgb was low at 11.6. His Na was low at 134. His anion gap is elevated at 16.2. His creatinine was elevated at 1.4. His AST was elevated at 45. His CRP was elevated at 1.5. His UA shows no UTI. 01/26/20 16:18 He is COVID 19 positive. 01/26/20 16:24 I have ordered more labs. He is confused and wanted to leave. I gave him some ativan 0.5mg IV. I talked with Dr Butler our hospitalist and she agreed to the admission. She did recommend giving him some dexamethasone 6mg IV. I called his daughter Brandi and she wanted him transported to [place]. That works better for their family. I have called [facility] in [place]. 01/26/20 16:[address] Walters and he agreed to the transfer. Departure - Departure Time of Disposition: 17:00 Disposition: DC/Tfer to Acute Hospital 02 Condition: Poor Clinical Impression: COVID-19, Confusion - Discharge Information Referrals: Braxton Villarreal MD [Primary Care Provider] - Forms: ED Department Discharge Sepsis Event Note (ED) - Evaluation Sepsis Screening Result: No Definite Risk - Focused Exam Vital Signs: Vital Signs Temp Pulse Resp BP Pulse Ox 01/26/20 14:32 170/95 H 01/26/20 14:18 101 F H 90 16 97 - My Orders Last 24 Hours: My Active Orders 01/26/20 14:46 Sodium Chloride 0.9% [Saline Flush] 10 ml FLUSH ASDIRECTED PRN Blood Culture x2 Reflex Set [OM.PC] Stat Saline Lock Insert [OM.PC] Stat 01/26/20 15:13 CULTURE BLOOD [BC] Stat FERRITIN [CHEM] Stat LACTATE DEHYDROGENASE,LDH [CHEM] Stat 01/26/20 15:17 CULTURE BLOOD [BC] Stat - Assessment/Plan Last 24 Hours: My Active Orders 01/26/20 14:46 Sodium Chloride 0.9% [Saline Flush] 10 ml FLUSH ASDIRECTED PRN Blood Culture x2 Reflex Set [OM.PC] Stat Saline Lock Insert [OM.PC] Stat 01/26/20 15:13 CULTURE BLOOD [BC] Stat FERRITIN [CHEM] Stat LACTATE DEHYDROGENASE,LDH [CHEM] Stat 01/26/20 15:17 CULTURE BLOOD [BC] Stat
--- NOTE | 2020-01-26 16:02 | CR ---
Chest: Portable view of the chest was obtained. Comparison: Prior chest x-ray of 11/08/18. Heart size is within normal limits for portable technique. Tortuous thoracic aorta is seen. Lungs are clear with no acute parenchymal change. Bony structures are grossly intact. Impression: 1. Nothing acute is appreciated on portable chest x-ray. Diagnostic code #1 This report was dictated in MDT
[2020-01-26] MEDS ORDERED: LORazepam 2 MG/ML SDV IVPUSH ONE (16:14)
[2020-01-26] MEDS ORDERED: Dexamethasone 4 MG/ML SDV IVPUSH ONE (16:41)
== END 2020-01-26 17:40 ==
LOC: JD.ED 14:00
DX: U07.1 COVID-19 (principal); R41.0 Disorientation, unspecified; I10 Essential (primary) hypertension; E78.00 Pure hypercholesterolemia, unspecified; E11.9 Type 2 diabetes mellitus without complications; Z88.1 Allergy status to other antibiotic agents; Z79.899 Other long term (current) drug therapy; Z79.84 Long term (current) use of oral hypoglycemic drugs
CPT/HCPCS: 36415; 71045; 80053; 81001; 82728; 83605; 83615; 85007; 85027; 85379; 85610; 86140; 87040; 96374; 96375; 99285; A9270; J1100; J2060; U0002; 99284

== ENCOUNTER 2022-07-18 13:13 | Emergency (ER) | payer MEDICARE, OTHER ==
[2022-07-18 14:26] LABS: CORONAVIRUS COVID-19 NAA NEGATIVE (NEGATIVE)
[2022-07-18] MEDS ORDERED: Lactated Ringers 1,000 ML IV ONE (14:55)
[2022-07-18] MEDS ORDERED: Sodium Chloride 0.9% 10 ML Syringe FLUSH PRN (15:00)
[2022-07-18] MEDS ORDERED: Sodium Chloride 0.9% 100 ML IV SCH (15:00)
[2022-07-18] MEDS ORDERED: Sodium Chloride 0.9% 1,000 ML IV SCH (15:00)
[2022-07-18] MEDS ORDERED: Iopamidol 755 Mg/ML 100 ML Bottle IVPUSH ONE (15:00)
[2022-07-18] MEDS ORDERED: Cefepime 2 GM in Sodium Chloride 0.9% 50 ML IV ONE (15:33)
[2022-07-18] MEDS ORDERED: Magnesium Sulfate/Water 2 GM in Premix Bag 1 BAG IV ONE (17:17)
[2022-07-18] MEDS ORDERED: Aspirin 81 MG Tab.Chew PO ONE (17:19)
[2022-07-18] MEDS ORDERED: Norepinephrine 4 MG in Dextrose 5% in Water 246 ML IV SCH ×2 (18:30)
[2022-07-18] MEDS ORDERED: Fludrocortisone 0.1 MG Tab PO ONE (18:33)
[2022-07-18] MEDS ORDERED: cefTRIAXone 2 GM in Sodium Chloride 0.9% 100 ML IV ONE (18:40)
[2022-07-18] MEDS ORDERED: Hydrocortisone Sodium Succinate 100 MG/2 ML SDV IV ONE (18:40)
== END 2022-07-18 20:40 ==
LOC: JD.ED 13:13
DX: A41.9 Sepsis, unspecified organism (principal); R65.20 Severe sepsis without septic shock; N17.9 Acute kidney failure, unspecified; E27.2 Addisonian crisis; G93.40 Encephalopathy, unspecified; E78.00 Pure hypercholesterolemia, unspecified; I10 Essential (primary) hypertension; E11.9 Type 2 diabetes mellitus without complications; Z88.1 Allergy status to other antibiotic agents; Z79.82 Long term (current) use of aspirin; Z79.899 Other long term (current) drug therapy; Z79.84 Long term (current) use of oral hypoglycemic drugs; Z20.822 Contact with and (suspected) exposure to COVID-19
CPT/HCPCS: 0241U; 36415; 36600; 70450; 71045; 71275; 74177; 80053; 81001; 82803; 83605; 83690; 83880; 84439; 84443; 84484; 85025; 87040; 93005; 96361; 96365; 96366; 96367; 96368; 96375; 99285; A9270; J0692; J0696; J1720; J3370; J3475; J3490; J7030; J7050; J7060; J7120; Q9967; 51702; 93010

== ENCOUNTER 2022-10-16 14:02 | Emergency (ER) | payer MEDICARE, OTHER ==
[2022-10-16 15:06] LABS: BASOPHILS ABSOLUTE AUTO 0.03 K/mm3 (0.01-0.08); BASOPHILS PERCENT AUTO 0.6 % (0.1-1.2); EOSINOPHILS ABSOLUTE AUTO 0.24 K/mm3 (0.04-0.54); EOSINOPHILS PERCENT AUTO 5.1 (0.8-7.0); HEMATOCRIT 32.7 % (40.1-51.0); HEMOGLOBIN 10.2 gm/dl (13.7-17.5); IMMATURE GRAN ABSOLUTE AUTO 0.02 K/mm3 (0.00-0.10); IMMATURE GRAN PERCENT AUTO 0.4 % (<=1.0); LYMPHOCYTES ABSOLUTE AUTO 0.72 K/mm3 (1.32-3.57); LYMPHOCYTES PERCENT AUTO 15.3 % (21.8-53.1); MEAN CORPUSCULAR HEMOGLOBIN 27.9 pg (25.7-32.2); MEAN CORPUSCULAR HGB CONC 31.2 g/dl (32.2-35.5); MEAN CORPUSCULAR VOLUME 89.6 fl (79.0-92.2); MEAN PLATELET VOLUME 8.9 fl (9.4-12.3); MONOCYTES ABSOLUTE AUTO 0.33 K/mm3 (0.30-0.82); NEUTROPHILS ABSOLUTE AUTO 3.38 K/mm3 (1.78-5.38); NEUTROPHILS PERCENT AUTO 71.6 % (34.0-67.9); PLATELET COUNT,PLT 280 K/mm3 (163-337); RED BLOOD CELL COUNT 3.65 M/mm3 (4.63-6.08); WHITE BLOOD CELL COUNT,WBC 4.72 K/mm3 (4.23-9.07)
[2022-10-16 15:44] LABS: A/G RATIO 0.8 (1-2); ALANINE AMINOTRANSFERASE,ALT 25 U/L (16-63); ALBUMIN 2.7 g/dl (3.4-5.0); ALKALINE PHOSPHATASE 53 U/L (46-116); ANION GAP 14.5 (5-15); ASPARTATE AMNIOTRANSFERASE,AST 21 U/L (15-37); BILIRUBIN TOTAL 0.2 mg/dL (0.2-1.0); BLOOD UREA NITROGEN,BUN 25 mg/dL (7-18); BUN/CREATININE RATIO 14.7 (14-18); CALCIUM 8.1 mg/dL (8.5-10.1); CARBON DIOXIDE,CO2 19 mEq/L (21-32); CHLORIDE,CL 107 mEq/L (98-107); CREATININE 1.7 mg/dL (0.7-1.3); ESTIMATED GFR 39 mL/min (>60); GLUCOSE RANDOM 397 mg/dL (70-99); POTASSIUM,K 4.5 mEq/L (3.5-5.1); PROTEIN TOTAL,TP 5.9 g/dl (6.4-8.2); SODIUM,NA 136 mEq/L (136-145)
[2022-10-16] MEDS ORDERED: Insulin Lispro 100 Unit/ML 3 ML KwikPen SUBCUT ONE ×2 (16:15→18:30)
== END 2022-10-16 19:57 | disposition home or self-care (01) ==
LOC: JD.ED 14:02
DX: E11.65 Type 2 diabetes mellitus with hyperglycemia (principal); E78.00 Pure hypercholesterolemia, unspecified; I10 Essential (primary) hypertension; Z88.1 Allergy status to other antibiotic agents; Z79.82 Long term (current) use of aspirin; Z79.899 Other long term (current) drug therapy; Z79.4 Long term (current) use of insulin; Z86.16 Personal history of COVID-19
CPT/HCPCS: 36415; 80053; 82947; 85025; 99284; J1815; 99283

== ENCOUNTER 2022-11-17 16:46 | Inpatient (IN) | payer MEDICARE, OTHER ==
[2022-11-17] MEDS ORDERED: Sodium Chloride 0.9% 10 ML Syringe FLUSH PRN (17:38)
[2022-11-17 18:22] LABS: BASOPHILS ABSOLUTE AUTO 0.04 K/mm3 (0.01-0.08); BASOPHILS PERCENT AUTO 0.8 % (0.1-1.2); HEMATOCRIT 40.2 % (40.1-51.0); HEMOGLOBIN 12.9 gm/dl (13.7-17.5); IMMATURE GRAN ABSOLUTE AUTO 0.01 K/mm3 (0.00-0.10); IMMATURE GRAN PERCENT AUTO 0.2 % (<=1.0); LYMPHOCYTES ABSOLUTE AUTO 0.81 K/mm3 (1.32-3.57); LYMPHOCYTES PERCENT AUTO 16.4 % (21.8-53.1); MEAN CORPUSCULAR HGB CONC 32.1 g/dl (32.2-35.5); MEAN CORPUSCULAR VOLUME 84.1 fl (79.0-92.2); MEAN PLATELET VOLUME 9.1 fl (9.4-12.3); MONOCYTES ABSOLUTE AUTO 0.37 K/mm3 (0.30-0.82); MONOCYTES PERCENT AUTO 7.5 % (5.3-12.2); NEUTROPHILS ABSOLUTE AUTO 3.52 K/mm3 (1.78-5.38); NEUTROPHILS PERCENT AUTO 71.1 % (34.0-67.9); PLATELET COUNT,PLT 419 K/mm3 (163-337); RED BLOOD CELL COUNT 4.78 M/mm3 (4.63-6.08); WHITE BLOOD CELL COUNT,WBC 4.95 K/mm3 (4.23-9.07)
[2022-11-17 18:47] LABS: A/G RATIO 0.8 (1-2); ALANINE AMINOTRANSFERASE,ALT 26 U/L (16-63); ALBUMIN 3.1 g/dl (3.4-5.0); ALKALINE PHOSPHATASE 175 U/L (46-116); ANION GAP 22.9 (5-15); ASPARTATE AMNIOTRANSFERASE,AST 36 U/L (15-37); BILIRUBIN TOTAL 0.4 mg/dL (0.2-1.0); BLOOD UREA NITROGEN,BUN 50 mg/dL (7-18); BUN/CREATININE RATIO 15.6 (14-18); C-REACTIVE PROTEIN 2.6 mg/dL (<1.0); CALCIUM 8.8 mg/dL (8.5-10.1); CARBON DIOXIDE,CO2 13 mEq/L (21-32); CHLORIDE,CL 111 mEq/L (98-107); CREATININE 3.2 mg/dL (0.7-1.3); ESTIMATED GFR 18 mL/min (>60); GLUCOSE RANDOM 128 mg/dL (70-99); POTASSIUM,K 3.9 mEq/L (3.5-5.1); PROTEIN TOTAL,TP 6.8 g/dl (6.4-8.2); SODIUM,NA 143 mEq/L (136-145)
[2022-11-17] MEDS ORDERED: Sodium Chloride 0.9% 500 ML IV STA (18:54)
[2022-11-17] MEDS ORDERED: HYDROmorphone 0.5 MG/0.5 ML Syringe IVPUSH ONE (18:54)
[2022-11-17] MEDS ORDERED: Sodium Chloride 0.9% 1,000 ML IV STA (19:08)
[2022-11-17 19:14] LABS: LACTIC ACID 0.8 mmol/L (0.4-2.0)
[2022-11-17 19:25] LABS: APPEARANCE,URINE CLEAR (Clear); BILIRUBIN,URINE 1+ (Negative); COLOR,URINE YELLOW (Yellow); GLUCOSE,URINE NEGATIVE (Negative); KETONES,URINE TRACE (Negative); LEUKOCYTE ESTERASE,URINE NEGATIVE (Negative); NITRITE,URINE NEGATIVE (Negative); OCCULT BLOOD,URINE NEGATIVE (Negative); PH,URINE 5.5 (5.0-8.0); PROTEIN,URINE 2+ (Negative); UROBILINOGEN,URINE 0.2 (0.2-1.0)
[2022-11-17 19:36] LABS: BACTERIA,URINE MODERATE /hpf (FEW); RBC,URINE 0-5 /hpf (0-5); SQUAMOUS EPITHELIAL CELLS,UR 0-5 /hpf (0-5); WBC,URINE 0-5 /hpf (0-5)
[2022-11-17 19:37] LABS: AMORPHOUS SEDIMENT,URINE FEW /hpf (NOT SEEN); MUCUS,URINE FEW /hpf (FEW)
[2022-11-17] MEDS ORDERED: HYDROmorphone 0.5 MG/0.5 ML Syringe ONE (21:00)
[2022-11-17] MEDS ORDERED: Docusate Sodium 100 MG Cap PO PRN (21:23)
[2022-11-17] MEDS ORDERED: Ondansetron 4 MG/2 ML SDV IV PRN (21:23)
[2022-11-17] MEDS ORDERED: Ondansetron 4 MG Tab.DIS PO PRN (21:23)
[2022-11-17] MEDS ORDERED: Temazepam 7.5 MG Cap PO PRN (21:23)
[2022-11-17] MEDS ORDERED: Polyethylene Glycol 3350 Powder 17 GM Packet PO PRN (21:23)
[2022-11-17] MEDS ORDERED: Glucose Gel 15 GM in 37.5 GM Tube PO PRN (21:29)
[2022-11-17] MEDS ORDERED: Sodium Chloride 0.9% 1,000 ML IV SCH ×2 (21:30→23:00)
[2022-11-17 22:02] LABS: HEMOGLOBIN A1C 7.2 %
[2022-11-17] MEDS: Ciprofloxacin 0.3% Ophth Soln 5 ML Bottle EYERT SCH (22:57)
[2022-11-17] MEDS: oxyCODONE 5 MG Tab PO PRN (23:02)
[2022-11-17] MEDS: Erythromycin Base 0.5% Ophth Oint 1 GM Tube EYERT SCH (23:20)
[2022-11-18] MEDS: Erythromycin Base 0.5% Ophth Oint 1 GM Tube EYERT SCH ×24 (00:27→23:52)
[2022-11-18] MEDS: Acetaminophen 325 MG Tab PO PRN ×5 (00:37→21:52)
[2022-11-18] MEDS: Ciprofloxacin 0.3% Ophth Soln 5 ML Bottle EYERT SCH ×7 (03:08→23:52)
[2022-11-18] MEDS: oxyCODONE 5 MG Tab PO PRN ×4 (03:11→20:30)
[2022-11-18 05:54] LABS: ANION GAP 23.6 (5-15); BUN/CREATININE RATIO 15.6 (14-18); CREATININE 2.7 mg/dL (0.7-1.3); EST CRCL DRUG DOSING (CG) 18.9 mL/min; POTASSIUM,K 3.6 mEq/L (3.5-5.1)
[2022-11-18 05:55] LABS: BASOPHILS ABSOLUTE AUTO 0.02 K/mm3 (0.01-0.08); BASOPHILS PERCENT AUTO 0.5 % (0.1-1.2); EOSINOPHILS ABSOLUTE AUTO 0.15 K/mm3 (0.04-0.54); HEMATOCRIT 34.8 % (40.1-51.0); IMMATURE GRAN ABSOLUTE AUTO 0.01 K/mm3 (0.00-0.10); IMMATURE GRAN PERCENT AUTO 0.3 % (<=1.0); LYMPHOCYTES ABSOLUTE AUTO 0.75 K/mm3 (1.32-3.57); LYMPHOCYTES PERCENT AUTO 20.2 % (21.8-53.1); MEAN CORPUSCULAR HEMOGLOBIN 26.7 pg (25.7-32.2); MEAN CORPUSCULAR HGB CONC 31.3 g/dl (32.2-35.5); MEAN CORPUSCULAR VOLUME 85.3 fl (79.0-92.2); MEAN PLATELET VOLUME 9.1 fl (9.4-12.3); MONOCYTES ABSOLUTE AUTO 0.29 K/mm3 (0.30-0.82); MONOCYTES PERCENT AUTO 7.8 % (5.3-12.2); NEUTROPHILS ABSOLUTE AUTO 2.49 K/mm3 (1.78-5.38); NEUTROPHILS PERCENT AUTO 67.2 % (34.0-67.9); PLATELET COUNT,PLT 351 K/mm3 (163-337); RED BLOOD CELL COUNT 4.08 M/mm3 (4.63-6.08); WHITE BLOOD CELL COUNT,WBC 3.71 K/mm3 (4.23-9.07)
[2022-11-18 06:22] LABS: HEMOGLOBIN 10.9 gm/dl (13.7-17.5)
[2022-11-18] MEDS: Pantoprazole 40 MG Tab.CR PO SCH (06:35)
[2022-11-18] MEDS: Insulin Lispro 100 Unit/ML 3 ML KwikPen SUBCUT SCH ×4 (08:03→21:50)
[2022-11-18] MEDS ORDERED: Enoxaparin 40 MG/0.4 ML Syringe SUBCUT SCH (09:00)
[2022-11-18] MEDS: Enoxaparin 30 MG/0.3 ML Syringe SUBCUT SCH (09:17)
[2022-11-19] MEDS: Erythromycin Base 0.5% Ophth Oint 1 GM Tube EYERT SCH ×23 (01:00→23:37)
[2022-11-19] MEDS: Ciprofloxacin 0.3% Ophth Soln 5 ML Bottle EYERT SCH ×6 (01:34→21:20)
[2022-11-19] MEDS: oxyCODONE 5 MG Tab PO PRN ×4 (01:37→21:27)
[2022-11-19] MEDS: Acetaminophen 325 MG Tab PO PRN ×2 (05:25→21:26)
[2022-11-19] MEDS: Pantoprazole 40 MG Tab.CR PO SCH (05:30)
[2022-11-19 06:35] LABS: BASOPHILS ABSOLUTE AUTO 0.03 K/mm3 (0.01-0.08); BASOPHILS PERCENT AUTO 0.8 % (0.1-1.2); EOSINOPHILS ABSOLUTE AUTO 0.19 K/mm3 (0.04-0.54); EOSINOPHILS PERCENT AUTO 5.2 (0.8-7.0); HEMATOCRIT 35.7 % (40.1-51.0); HEMOGLOBIN 11.4 gm/dl (13.7-17.5); LYMPHOCYTES ABSOLUTE AUTO 0.63 K/mm3 (1.32-3.57); LYMPHOCYTES PERCENT AUTO 17.4 % (21.8-53.1); MEAN CORPUSCULAR HEMOGLOBIN 27.3 pg (25.7-32.2); MEAN CORPUSCULAR HGB CONC 31.9 g/dl (32.2-35.5); MEAN CORPUSCULAR VOLUME 85.6 fl (79.0-92.2); MONOCYTES ABSOLUTE AUTO 0.31 K/mm3 (0.30-0.82); MONOCYTES PERCENT AUTO 8.6 % (5.3-12.2); NEUTROPHILS ABSOLUTE AUTO 2.46 K/mm3 (1.78-5.38); PLATELET COUNT,PLT 348 K/mm3 (163-337); RED BLOOD CELL COUNT 4.17 M/mm3 (4.63-6.08); WHITE BLOOD CELL COUNT,WBC 3.62 K/mm3 (4.23-9.07)
[2022-11-19 06:48] LABS: ANION GAP 18.8 (5-15); BUN/CREATININE RATIO 14.5 (14-18); CALCIUM 8.3 mg/dL (8.5-10.1); CREATININE 2.2 mg/dL (0.7-1.3); EST CRCL DRUG DOSING (CG) 23.55 mL/min; POTASSIUM,K 3.8 mEq/L (3.5-5.1)
[2022-11-19] MEDS: Dextrose 5%-0.45% NaCl 1,000 ML IV SCH ×2 (07:08→12:21)
[2022-11-19] MEDS: Insulin Lispro 100 Unit/ML 3 ML KwikPen SUBCUT SCH ×4 (08:14→22:34)
[2022-11-19] MEDS: Enoxaparin 30 MG/0.3 ML Syringe SUBCUT SCH (08:56)
[2022-11-19] MEDS ORDERED: Apixaban 5 MG Tab PO SCH (09:45)
[2022-11-19] MEDS ORDERED: Sodium Chloride 0.9% 1,000 ML IV ONE (10:34)
[2022-11-19] MEDS: Gabapentin 100 MG Cap PO SCH ×2 (10:49→21:26)
[2022-11-19] MEDS: Finasteride 5 MG Tab PO SCH (10:49)
[2022-11-19] MEDS: Empagliflozin 10 MG Tab PO SCH (10:49)
[2022-11-19] MEDS: Megestrol Susp 40 MG/ML 10 ML UD Cup PO SCH (10:49)
[2022-11-19] MEDS ORDERED: Erythromycin Base 0.5% Ophth Oint 1 GM Tube EYERT SCH (13:00)
[2022-11-19] MEDS: Carboxymethylcellulose Sodium 1% Ophth Gel 15 ML Bottle EYEBOTH SCH ×3 (14:06→21:33)
[2022-11-19] MEDS: Apixaban 2.5 MG Tab PO SCH (21:27)
[2022-11-19] MEDS: Pramipexole 0.25 MG Tab PO SCH (21:27)
[2022-11-19] MEDS: atorvaSTATin 20 MG Tab PO SCH (21:27)
[2022-11-20] MEDS: Erythromycin Base 0.5% Ophth Oint 1 GM Tube EYERT SCH ×24 (00:40→23:34)
[2022-11-20] MEDS: Ciprofloxacin 0.3% Ophth Soln 5 ML Bottle EYERT SCH ×6 (01:10→20:57)
[2022-11-20] MEDS: Acetaminophen 325 MG Tab PO PRN ×3 (01:29→21:08)
[2022-11-20] MEDS: oxyCODONE 5 MG Tab PO PRN (01:29)
[2022-11-20] MEDS: Metoprolol Succinate 50 MG Tab.ER PO ONE ×2 (01:29→01:36)
[2022-11-20] MEDS ORDERED: Non-Formulary Medication 1 Each (Omeprazole 20 MG Capsule.Dr) PO SCH (06:00)
[2022-11-20] MEDS: Pantoprazole 40 MG Tab.CR PO SCH (07:05)
[2022-11-20] MEDS: Insulin Lispro 100 Unit/ML 3 ML KwikPen SUBCUT SCH ×4 (08:07→20:55)
[2022-11-20] MEDS: Finasteride 5 MG Tab PO SCH (08:10)
[2022-11-20] MEDS: Metoprolol Succinate 25 MG Tab.ER PO SCH (08:10)
[2022-11-20] MEDS: Gabapentin 100 MG Cap PO SCH ×2 (08:10→20:55)
[2022-11-20] MEDS: predniSONE 5 MG Tab PO SCH (08:10)
[2022-11-20] MEDS: Empagliflozin 10 MG Tab PO SCH (08:10)
[2022-11-20] MEDS: Apixaban 2.5 MG Tab PO SCH ×2 (08:14→20:55)
[2022-11-20] MEDS: Aspirin 81 MG Tab.EC PO SCH (08:14)
[2022-11-20] MEDS: Megestrol Susp 40 MG/ML 10 ML UD Cup PO SCH (08:14)
[2022-11-20] MEDS: Sertraline 50 MG Tab PO SCH (08:14)
[2022-11-20] MEDS: Dextrose 5%-0.45% NaCl 1,000 ML IV SCH (08:28)
[2022-11-20] MEDS: Insulin Glargine,Human Rec. Analog 100 Units/ML 3 ML Pen SUBCUT SCH (08:47)
[2022-11-20] MEDS: Carboxymethylcellulose Sodium 1% Ophth Gel 15 ML Bottle EYEBOTH SCH ×4 (08:48→20:56)
[2022-11-20] MEDS: Dextrose 5% in Water 1,000 ML IV SCH ×2 (11:49→21:09)
[2022-11-20] MEDS: HYDROCORTISONE PE APP TOP SCH (17:11)
[2022-11-20] MEDS: atorvaSTATin 20 MG Tab PO SCH (20:55)
[2022-11-20] MEDS: Pramipexole 0.25 MG Tab PO SCH (20:55)
[2022-11-20] MEDS: Melatonin 3 MG Tab PO PRN (21:08)
[2022-11-21] MEDS: Erythromycin Base 0.5% Ophth Oint 1 GM Tube EYERT SCH ×14 (00:22→21:03)
[2022-11-21] MEDS: Ciprofloxacin 0.3% Ophth Soln 5 ML Bottle EYERT SCH ×6 (01:00→21:03)
[2022-11-21] MEDS: Pantoprazole 40 MG Tab.CR PO SCH (05:35)
[2022-11-21 06:09] LABS: ANION GAP 13.2 (5-15); BUN/CREATININE RATIO 8.8 (14-18); CALCIUM 7.8 mg/dL (8.5-10.1); CREATININE 1.6 mg/dL (0.7-1.3); EST CRCL DRUG DOSING (CG) 32.66 mL/min; POTASSIUM,K 3.2 mEq/L (3.5-5.1)
[2022-11-21 06:24] LABS: HEMATOCRIT 29.6 % (40.1-51.0); MEAN CORPUSCULAR HEMOGLOBIN 26.7 pg (25.7-32.2); MEAN CORPUSCULAR HGB CONC 31.1 g/dl (32.2-35.5); MEAN CORPUSCULAR VOLUME 85.8 fl (79.0-92.2); MEAN PLATELET VOLUME 9.4 fl (9.4-12.3); PLATELET COUNT,PLT 265 K/mm3 (163-337); RED BLOOD CELL COUNT 3.45 M/mm3 (4.63-6.08); WHITE BLOOD CELL COUNT,WBC 2.69 K/mm3 (4.23-9.07)
[2022-11-21] MEDS ORDERED: D5 1/2 NS w/ 40 mEq/L KCl 1,000 ML IV SCH (06:30)
[2022-11-21 06:34] LABS: HEMOGLOBIN 9.2 gm/dl (13.7-17.5)
[2022-11-21] MEDS: Insulin Lispro 100 Unit/ML 3 ML KwikPen SUBCUT SCH ×4 (07:49→21:02)
[2022-11-21] MEDS: Megestrol Susp 40 MG/ML 10 ML UD Cup PO SCH (08:14)
[2022-11-21] MEDS: Insulin Glargine,Human Rec. Analog 100 Units/ML 3 ML Pen SUBCUT SCH (08:14)
[2022-11-21] MEDS: Metoprolol Succinate 25 MG Tab.ER PO SCH (08:16)
[2022-11-21] MEDS: Gabapentin 100 MG Cap PO SCH ×2 (08:16→21:03)
[2022-11-21] MEDS: Finasteride 5 MG Tab PO SCH (08:16)
[2022-11-21] MEDS: Sertraline 50 MG Tab PO SCH (08:16)
[2022-11-21] MEDS: Empagliflozin 10 MG Tab PO SCH (08:17)
[2022-11-21] MEDS: predniSONE 5 MG Tab PO SCH (08:17)
[2022-11-21] MEDS: Aspirin 81 MG Tab.EC PO SCH (08:17)
[2022-11-21] MEDS: Apixaban 2.5 MG Tab PO SCH ×2 (08:17→21:03)
[2022-11-21] MEDS: Carboxymethylcellulose Sodium 1% Ophth Gel 15 ML Bottle EYEBOTH SCH ×4 (08:27→21:03)
[2022-11-21] MEDS ORDERED: Potassium Chloride 20 MEQ Tab.ER PO ONE (09:00)
[2022-11-21] MEDS: Acetaminophen 325 MG Tab PO PRN ×2 (11:31→21:03)
[2022-11-21] MEDS: atorvaSTATin 20 MG Tab PO SCH (21:03)
[2022-11-21] MEDS: Melatonin 3 MG Tab PO PRN (21:03)
[2022-11-21] MEDS: Pramipexole 0.25 MG Tab PO SCH (21:03)
[2022-11-22] MEDS: Ciprofloxacin 0.3% Ophth Soln 5 ML Bottle EYERT SCH ×3 (00:59→09:57)
[2022-11-22] MEDS: Pantoprazole 40 MG Tab.CR PO SCH (05:17)
[2022-11-22] MEDS: Erythromycin Base 0.5% Ophth Oint 1 GM Tube EYERT SCH ×2 (05:17→10:19)
[2022-11-22 06:25] LABS: HEMATOCRIT 31.2 % (40.1-51.0); HEMOGLOBIN 9.7 gm/dl (13.7-17.5); MEAN CORPUSCULAR HEMOGLOBIN 26.5 pg (25.7-32.2); MEAN CORPUSCULAR HGB CONC 31.1 g/dl (32.2-35.5); MEAN CORPUSCULAR VOLUME 85.2 fl (79.0-92.2); MEAN PLATELET VOLUME 9.4 fl (9.4-12.3); PLATELET COUNT,PLT 288 K/mm3 (163-337); RED BLOOD CELL COUNT 3.66 M/mm3 (4.63-6.08)
[2022-11-22] MEDS: Insulin Lispro 100 Unit/ML 3 ML KwikPen SUBCUT SCH ×2 (07:55→11:00)
[2022-11-22] MEDS: Metoprolol Succinate 25 MG Tab.ER PO SCH (08:06)
[2022-11-22] MEDS: Aspirin 81 MG Tab.EC PO SCH (08:07)
[2022-11-22] MEDS: Finasteride 5 MG Tab PO SCH (08:07)
[2022-11-22] MEDS: Apixaban 2.5 MG Tab PO SCH (08:07)
[2022-11-22] MEDS: Megestrol Susp 40 MG/ML 10 ML UD Cup PO SCH (08:07)
[2022-11-22] MEDS: Sertraline 50 MG Tab PO SCH (08:07)
[2022-11-22] MEDS: Empagliflozin 10 MG Tab PO SCH (08:07)
[2022-11-22] MEDS: predniSONE 5 MG Tab PO SCH (08:07)
[2022-11-22] MEDS: Gabapentin 100 MG Cap PO SCH (08:07)
[2022-11-22] MEDS ORDERED: Insulin Glargine,Human Rec. Analog 100 Units/ML 3 ML Pen SUBCUT SCH (09:00)
[2022-11-22 09:38] LABS: ANION GAP 14.4 (5-15); CALCIUM 7.9 mg/dL (8.5-10.1); CREATININE 1.5 mg/dL (0.7-1.3); EST CRCL DRUG DOSING (CG) 34.96 mL/min; POTASSIUM,K 3.4 mEq/L (3.5-5.1)
[2022-11-22] MEDS: Carboxymethylcellulose Sodium 1% Ophth Gel 15 ML Bottle EYEBOTH SCH (09:56)
== END 2022-11-22 12:45 | DRG 682 ==
LOC: JD.ED 16:46 → JD.MS 20:43 → UNDOADMIN 20:43
PROVIDERS: ADMIT Hospitalist; ATTEND Internal Medicine
DX: N17.9 Acute kidney failure, unspecified (principal); G93.41 Metabolic encephalopathy; I45.10 Unspecified right bundle-branch block; E87.0 Hyperosmolality and hypernatremia; E11.9 Type 2 diabetes mellitus without complications; I10 Essential (primary) hypertension; E27.40 Unspecified adrenocortical insufficiency; E87.29 Other acidosis; G25.81 Restless legs syndrome; G51.0 Bell's palsy; I12.9 Hypertensive chronic kidney disease with stage 1 through stage 4 chronic kidney disease, or unspecified chronic kidney disease; E11.22 Type 2 diabetes mellitus with diabetic chronic kidney disease; N18.30 Chronic kidney disease, stage 3 unspecified; E11.649 Type 2 diabetes mellitus with hypoglycemia without coma; Z86.16 Personal history of COVID-19; Z20.822 Contact with and (suspected) exposure to COVID-19; G47.33 Obstructive sleep apnea (adult) (pediatric); E78.00 Pure hypercholesterolemia, unspecified; E86.0 Dehydration; N40.1 Benign prostatic hyperplasia with lower urinary tract symptoms; R35.1 Nocturia; I48.91 Unspecified atrial fibrillation; N40.0 Benign prostatic hyperplasia without lower urinary tract symptoms; E87.6 Hypokalemia; Z90.49 Acquired absence of other specified parts of digestive tract; Z88.1 Allergy status to other antibiotic agents; Z79.4 Long term (current) use of insulin; Z79.82 Long term (current) use of aspirin; Z79.01 Long term (current) use of anticoagulants; Z79.899 Other long term (current) drug therapy; Z98.890 Other specified postprocedural states
CPT/HCPCS: 36415; 51701; 51798; 70450; 70450-26; 71045; 71045-26; 74176; 74176-26; 80048; 80053; 81001; 82947; 83036; 83605; 83630; 83690; 85025; 85027; 86140; 87040; 87045; 87046; 87493; 87899; 93005; 93010; 96360; 97162-GP; 97166-GO; 99285; 99285-25; A9270-GY; J1170; J1650; J1815; J1815-GY; J3480; J7030; J7042; J7060; J7512; U0002